=== PATIENT | female | born 1935 | race Caucasian/White ===

== ENCOUNTER 2016-06-20 12:02 | Emergency (ER) | payer OTHER ==
[~2016-06-20] VITALS: Ht 165.1 cm; Wt 67.0 kg
[~2016-06-20 12:02] MED LIST: ASPI-99 PO; BETH25 PO; CALC-187 PO; LOVA20TA PO; LUTE20CA PO; METO50TA PO; MULT-65 PO; NIAC500T34 PO; NORC10TA2 PO; OXYB5TAB PO; PROT40TA PO; RIVA10 PO; TRAM50TA PO; Z.0.CPM; Z.0.WALKERFRONT
[2016-06-20 12:13] VITALS: BP 113/74; PULSE 95; RESP 16; TEMP 100.7; O2SAT 97
[2016-06-20 12:29] LABS: BLOOD, URINE LARGE (NEG); GLUCOSE,URINE NEG (NEG); KETONE, URINE NEG (NEG)
--- NOTE | 2016-06-20 12:30 | PD ---
HPI Chief Complaint: Complaint Time Seen by Provider: 12:27 Travel History International Travel<30 days: No Contact w/Intl Traveler<30days: No Traveled to known affect area: No History of Present Illness HPI Patient presents with concerns of hematuria and fever. Denies any nausea vomiting or diarrhea. No new rashes. Denies any chest pain or shortness of breath. Denies frequency or pain on urination. Taking fluids well.. PFSH Past Medical History Arthritis: Yes Asthma: No Autoimmune Disease: No Blood Disorders: No Anxiety: No Depression: No Heart Rhythm Problems: No Cancer: No Cardiac Catheterization: No Cardiovascular Problems: No High Cholesterol: Yes Chemotherapy: No Chest Pain: No Congestive Heart Failure: No COPD: No Cerebrovascular Accident: No Diabetes: No Diminished Hearing: No Endocrine: No Gastrointestinal Disorders: Yes (GERD) GERD: Yes Glaucoma: No Genitourinary: Yes (FREQUENCY) Headaches: No Hepatitis: No Hiatal Hernia: Yes Hypertension: Yes Immune Disorder: No Kidney Stones: Yes (1999) Musculoskeletal: Yes (ARTHRITIS) Neurologic: No Psychiatric: No Reproductive: No Respiratory: No Immunizations Current: No Migraines: No Myocardial Infarction: No Radiation Therapy: No Seizures: No Sickle Cell Disease: No Sleep Apnea: No Thyroid Disease: No Ulcer: No Influenza Vaccination: Yes ?: Not Past Surgical History Abdominal Surgery: Yes (APPY) AICD: No Appendectomy: Yes Cardiac Surgery: No Cholecystectomy: Yes Coronary Artery Bypass Graft: No Ear Surgery: No Endocrine Surgery: No Eye Surgery: Yes (DEAN. CATARACT EXTRACT.) Genitourinary Surgery: No Gynecologic Surgery: Yes (HYSTERECTOMY/ CHOLECYSTECTOMY) Hysterectomy: Yes Joint Replacement: Yes (R KNEE) Oral Surgery: Yes (T&A) Pacemaker: No Thoracic Surgery: No Tonsillectomy: Yes Other Surgery: Yes Family History Family Myocardial Infarction: Yes Social History Alcohol Use: Yes (RARELY) Tobacco Use: No Substance Use: No Allergies-Medications (Allergen,Severity, Reaction): Coded Allergies: No Known Allergies (Verified , 06/20/16) Reported Meds & Prescriptions Reported Meds & Active Scripts Active Reported Tylenol (Acetaminophen) 325 Mg Cap 325 Mg PO ONCE PRN Biotin 1,000 Mcg Tab 1,000 Mg PO DAILY Vitamin B-12 (Cyanocobalamin) 1,000 Mcg Subl 500 Mcg SL DAILY Aspirin 81 Mg Tabdr 81 Mg PO DAILY Niacin 500 Mg Tab 500 Mg PO DAILY Calcium + D3 (Calcium Carbonate-Cholecalciferol) 600-200 Mg-Unit Tab 1 Tab PO BID Multi Complete (Multiple Vitamins W/ Minerals) 1 Cap Cap 1 Cap PO DAILY Bethanechol 25 Mg Tab 12.5 Mg PO BID Ditropan (Oxybutynin Chloride) 5 Mg Tab 5 Mg PO DAILY Metoprolol Tartrate 25 Mg Tab 25 Mg PO DAILY Lovastatin 20 Mg Tab 20 Mg PO DAILY Pantoprazole (Pantoprazole Sodium) 40 Mg Tab 40 Mg PO DAILY Review of Systems General / Constitutional: Positive: Fever Eyes: No: Visual changes HENT: No: Headaches Cardiovascular: No: Chest Pain or Discomfort Respiratory: No: Shortness of Breath Gastrointestinal: No: Abdominal Pain Genitourinary: Positive: Hematuria, No: Dysuria Musculoskeletal: No: Pain Skin: No Rash Neurologic: No: Weakness Psychiatric: No: Depression Endocrine: No: Polydipsia Hematologic/Lymphatic: No: Easy Bruising Physical Exam Narrative GENERAL: Well-nourished, well-developed patient. SKIN: Warm and dry. HEAD: Normocephalic. EYES: No scleral icterus. No injection or drainage. NECK: Supple, trachea midline. No JVD or lymphadenopathy. CARDIOVASCULAR: Regular rate and rhythm without murmurs, gallops, or rubs. RESPIRATORY: Breath sounds equal bilaterally. No accessory muscle use. GASTROINTESTINAL: Abdomen soft, non-tender, nondistended. MUSCULOSKELETAL: No cyanosis, or edema. BACK: without obvious deformity. No CVA tenderness. Exam initial lumbar sacral spine reveals no midline tenderness she does have some bilateral lower flank pain that is tender on palpation Data Data Last Documented VS Vital Signs Date Time Temp Pulse Resp B/P Pulse Ox O2 Delivery O2 Flow Rate FiO2 06/20/16 12:35 100.8 90 18 100/67 100 Room Air Orders Urinalysis - C+S If Indicated (06/20/16 12:18) Urine Culture (06/20/16 12:22) Labs Laboratory Tests Test 06/20/16 12:22 Urine Collection Type CLEAN CATCH Urine Color YELLOW Urine Turbidity CLOUDY Urine pH 6.0 Urine Specific [place] 1.011 Urine Protein 100 mg/dL Urine Glucose (UA) NEG mg/dL Urine Ketones NEG mg/dL Urine Occult Blood LARGE Urine Nitrite POS Urine Bilirubin NEG Urine Leukocyte Esterase LARGE Urine RBC 0-3 /hpf Urine WBC INNUM /hpf Urine WBC Clumps OCC Urine Bacteria MOD /hpf Microscopic Urinalysis Comment CULTURE INDICATED MDM Medical Decision Making Medical Screen Exam Complete: Yes Emergency Medical Condition: Yes Differential Diagnosis Hematuria, UTI, lumbar musculoskeletal pain, Fever Narrative Course Assessment and plan discussed with patient at bedside Diagnosis Primary Impression: UTI (urinary tract infection) Qualified Code: N39.0 - Urinary tract infection with hematuria, site unspecified Additional Instructions: Encourage fluids and cranberry juice, Tylenol for fever. Follow-up with PCP for test of cure Med/Other Pt SpecificInfo: Prescription(s) given Scripts Ciprofloxacin (Cipro)500 Mg Qey993 Mg PO BID #6 TAB Ref 0 Prov:Jef Llanes MD 06/20/16 Disposition: 01 DISCHARGE HOME Condition: Good Jef Llanes MD Jun 20, 2016 12:30
[2016-06-20] MEDS ORDERED: BETH25TA2 PO (12:33)
[2016-06-20] MEDS ORDERED: CALC600T10 PO (12:33)
[2016-06-20] MEDS ORDERED: LOVA20TA PO (12:33)
[2016-06-20] MEDS ORDERED: MULTCAP13 PO (12:33)
[2016-06-20] MEDS ORDERED: OXYB5TAB10 PO (12:33)
[2016-06-20] MEDS ORDERED: PANT40TA3 PO (12:33)
[2016-06-20] MEDS ORDERED: ASPI1TAB69 PO (12:33)
[2016-06-20] MEDS ORDERED: NIAC500T5 PO (12:33)
[2016-06-20] MEDS ORDERED: BIOT1000 PO (12:33)
[2016-06-20] MEDS ORDERED: METO25TA3 PO (12:33)
[2016-06-20] MEDS ORDERED: VITA100021 SL (12:33)
[2016-06-20 12:34] LABS: METHOD OF COLLECTION CLEAN CATCH; NITRITE,URINE POS (NEG); URINE COLOR YELLOW (YELLW/STRAW)
[2016-06-20 12:35] VITALS: BP 100/67; PULSE 90; RESP 18; TEMP 100.8; O2SAT 100
[2016-06-20 12:35] LABS: BACTERIA, URINE MOD /hpf; COMMENT (UR) CULTURE INDICATED; CULTURE IF INDICATED CULTURE INDICATED; RBC, URINE 0-3 /hpf (0-3); WBC, URINE INNUM /hpf (0-5)
[2016-06-20] MEDS ORDERED: ACET1CAP18 PO (12:38)
[2016-06-20] MEDS ORDERED: CIPR-9 PO (12:42)
[2016-06-20] MEDS ORDERED: cefTRIAXone 250 MG VIAL IM ONE (12:45)
[2016-06-20] MEDS ORDERED: LIDOCAINE HCL 1% 50 ML VIAL XX ONE (12:45)
== END 2016-06-20 13:25 | disposition home or self-care (01) ==
LOC: PHED 12:02
DX: N39.0 Urinary tract infection, site not specified (principal); B96.29 Other Escherichia coli [E. coli] as the cause of diseases classified elsewhere
CPT/HCPCS: 81001; 87077; 87086; 87186; 96372; 99284; J0696

== ENCOUNTER 2016-10-02 10:44 | Observation (INO) | payer OTHER ==
[2016-10-02] VITALS (8 sets, daily range): BP systolic 115–166; BP diastolic 62–88; PULSE 58–70; RESP 15–20; TEMP 98.5–98.9; O2SAT 96–98
[~2016-10-02] VITALS: Ht 165.1 cm; Wt 68.0 kg
[~2016-10-02 10:44] MED LIST changes: +ACET1CAP18 PO; -ASPI-99 PO; +ASPI1TAB69 PO; -BETH25 PO; +BETH25TA2 PO; +BIOT1000 PO; -CALC-187 PO; +CALC600T10 PO; +CIPR-9 PO; -LUTE20CA PO; +METO25TA3 PO; -METO50TA PO; -MULT-65 PO; +MULTCAP13 PO; -NIAC500T34 PO; +NIAC500T5 PO; -NORC10TA2 PO; -OXYB5TAB PO; +OXYB5TAB10 PO; +PANT40TA3 PO; -PROT40TA PO; -RIVA10 PO; -TRAM50TA PO; +VITA100021 SL; -Z.0.CPM; -Z.0.WALKERFRONT
--- NOTE | 2016-10-02 11:26 | PD ---
HPI Chief Complaint: Chest Pain Time Seen by Provider: 11:26 Travel History International Travel<30 days: No Contact w/Intl Traveler<30days: No Traveled to known affect area: No History of Present Illness HPI 80-year-old female with a history of hypertension, hyperlipidemia, GERD presents to the emergency department for evaluation of chest pain radiating to her jaw and face with shortness of breath. The patient states that she has a history of GERD and has frequent reflux in the morning. States that she typically wakes up with a burning sensation in her chest and once she sits up and takes Prilosec her symptoms resolved in about 15 minutes. States that this morning when she woke up with burning in her chest she was unable to alleviate the symptoms by taking Prilosec, sitting up or belching. States that the symptoms persisted for about an hour and she also had shortness of breath associated with the pain. She took a full 325 mg aspirin this morning. She denies any lightheadedness, dizziness, nausea, vomiting, diarrhea, abdominal pain, swelling of the extremities, fever, chills, cough or cold symptoms. States that she is concerned that because her symptoms were different today that this is and angina rather than reflux. Denies any prior history of PR or stents. States that she had a stress test 2 years ago that was unremarkable. No other complaints. PFSH Past Medical History Hx Anticoagulant Therapy: Yes (81MG ASA) Arthritis: Yes Asthma: No Autoimmune Disease: No Blood Disorders: No Anxiety: No Depression: No Heart Rhythm Problems: No Cancer: No Cardiac Catheterization: No Cardiovascular Problems: Yes (HTN) High Cholesterol: Yes Chemotherapy: No Chest Pain: No Congestive Heart Failure: No COPD: No Cerebrovascular Accident: No Diabetes: No Diminished Hearing: No Endocrine: No Gastrointestinal Disorders: Yes (GERD) GERD: Yes Glaucoma: No Genitourinary: Yes (FREQUENCY) Headaches: No Hepatitis: No Hiatal Hernia: Yes Hypertension: Yes Immune Disorder: No Kidney Stones: Yes (2000) Musculoskeletal: Yes (ARTHRITIS) Neurologic: No Psychiatric: No Reproductive: No Respiratory: No Immunizations Current: No Migraines: No Myocardial Infarction: No Radiation Therapy: No Seizures: No Sickle Cell Disease: No Sleep Apnea: No Thyroid Disease: No Ulcer: No ?: Not Past Surgical History Abdominal Surgery: Yes (APPY) AICD: No Appendectomy: Yes Cardiac Surgery: No Cholecystectomy: Yes Coronary Artery Bypass Graft: No Ear Surgery: No Endocrine Surgery: No Eye Surgery: Yes (DEAN. CATARACT EXTRACT.) Genitourinary Surgery: No Gynecologic Surgery: Yes (HYSTERECTOMY/ CHOLECYSTECTOMY) Hysterectomy: Yes Joint Replacement: Yes (R KNEE) Oral Surgery: Yes (T&A) Pacemaker: No Thoracic Surgery: No Tonsillectomy: Yes Other Surgery: Yes Family History Family Myocardial Infarction: Yes Social History Alcohol Use: Yes (RARELY) Tobacco Use: No Substance Use: No Allergies-Medications (Allergen,Severity, Reaction): Coded Allergies: No Known Allergies (Verified , 10/02/16) Reported Meds & Prescriptions Reported Meds & Active Scripts Active Cipro (Ciprofloxacin HCl) 500 Mg Tab 500 Mg PO BID Reported Tylenol (Acetaminophen) 325 Mg Cap 325 Mg PO ONCE PRN Biotin 1,000 Mcg Tab 1,000 Mg PO DAILY Vitamin B-12 (Cyanocobalamin) 1,000 Mcg Subl 500 Mcg SL DAILY Aspirin 81 Mg Tabdr 81 Mg PO DAILY Niacin 500 Mg Tab 500 Mg PO DAILY Calcium + D3 (Calcium Carbonate-Cholecalciferol) 600-200 Mg-Unit Tab 1 Tab PO BID Multi Complete (Multiple Vitamins W/ Minerals) 1 Cap Cap 1 Cap PO DAILY Bethanechol 25 Mg Tab 12.5 Mg PO BID Ditropan (Oxybutynin Chloride) 5 Mg Tab 5 Mg PO DAILY Metoprolol Tartrate 25 Mg Tab 25 Mg PO DAILY Lovastatin 20 Mg Tab 20 Mg PO DAILY Pantoprazole (Pantoprazole Sodium) 40 Mg Tab 40 Mg PO DAILY Review of Systems Except as stated in HPI: all other systems reviewed are Neg Physical Exam Narrative GENERAL: Well-nourished and well-developed pleasant patient in no acute distress who is nontoxic appearing. SKIN: Warm and dry. HEAD: Normocephalic and atraumatic. EYES: No injection, drainage, or hyphema noted. PERRLA. EOMI. ENT: No nasal drainage noted. Oropharynx is clear. NECK: Supple and the trachea is midline. CARDIOVASCULAR: Regular rate and rhythm. RESPIRATORY: Breath sounds are equal bilaterally with no accessory muscle use, wheezing, rhonchi, or crackles. GASTROINTESTINAL: Abdomen is soft, non-tender, and nondistended. MUSCULOSKELETAL: No obvious deformities, swelling, cyanosis, or ecchymosis is present throughout the upper and lower extremities. Patient has full range of motion without any signs of neurovascular compromise. NEUROLOGICAL: Awake, alert, and oriented. Normal speech and gait. Cranial nerves are grossly intact. Data Data Last Documented VS Vital Signs Date Time Temp Pulse Resp B/P Pulse Ox O2 Delivery O2 Flow Rate FiO2 10/02/16 12:46 62 20 166/78 98 10/02/16 11:15 Room Air 10/02/16 10:46 98.7 Orders Ckmb (Isoenzyme) Profile (10/02/16 11:25) Complete Blood Count With Diff (10/02/16 11:25) Comprehensive Metabolic Panel (10/02/16 11:25) Magnesium (Mg) (10/02/16 11:25) Prothrombin Time / Inr (Pt) (10/02/16 11:25) Act Partial Throm Time (Ptt) (10/02/16 11:25) Troponin I (10/02/16 11:25) Lipase (10/02/16 11:25) Chest, Single Ap (10/02/16 11:25) Ecg Monitoring (10/02/16 11:25) Bilateral Bp Monitoring (10/02/16 11:25) Iv Access Insert/Monitor (10/02/16 11:25) Oximetry (10/02/16 11:25) Sodium Chloride 0.9% Flush (Ns Flush) (10/02/16 11:30) Electrocardiogram (10/02/16 ) Admit Order (Ed Use Only) (10/02/16 12:46) Labs Laboratory Tests Test 10/02/16 11:30 White Blood Count 6.8 TH/MM3 Red Blood Count 4.39 MIL/MM3 Hemoglobin 14.2 GM/DL Hematocrit 40.7 % Mean Corpuscular Volume 92.8 FL Mean Corpuscular Hemoglobin 32.3 PG Mean Corpuscular Hemoglobin 34.8 % Concent Red Cell Distribution Width 12.6 % Platelet Count 243 TH/MM3 Mean Platelet Volume 7.1 FL Neutrophils (%) (Auto) 67.2 % Lymphocytes (%) (Auto) 23.6 % Monocytes (%) (Auto) 7.2 % Eosinophils (%) (Auto) 1.3 % Basophils (%) (Auto) 0.7 % Neutrophils # (Auto) 4.6 TH/MM3 Lymphocytes # (Auto) 1.6 TH/MM3 Monocytes # (Auto) 0.5 TH/MM3 Eosinophils # (Auto) 0.1 TH/MM3 Basophils # (Auto) 0.0 TH/MM3 CBC Comment DIFF FINAL Differential Comment Prothrombin Time 10.1 SEC Prothromb Time International 0.9 RATIO Ratio Activated Partial 29.3 SEC Thromboplast Time Sodium Level 132 MEQ/L Potassium Level 3.9 MEQ/L Chloride Level 99 MEQ/L Carbon Dioxide Level 24.9 MEQ/L Anion Gap 8 MEQ/L Blood Urea Nitrogen 14 MG/DL Creatinine 0.93 MG/DL Estimat Glomerular Filtration 58 ML/MIN Rate Random Glucose 86 MG/DL Calcium Level 9.5 MG/DL Magnesium Level 2.0 MG/DL Total Bilirubin 0.6 MG/DL Aspartate Amino Transf 16 U/L (AST/SGOT) Alanine Aminotransferase 17 U/L (ALT/SGPT) Alkaline Phosphatase 64 U/L Total Creatine Kinase 89 U/L Troponin I LESS THAN 0.02 NG/ML Total Protein 7.5 GM/DL Albumin 4.0 GM/DL Lipase 117 U/L [facility] Medical Decision Making Medical Screen Exam Complete: Yes Emergency Medical Condition: Yes Differential Diagnosis Angina versus ACS versus pleurisy versus reflux Narrative Course 80-year-old female presents to the emergency department for evaluation of chest pain with shortness of breath earlier this morning. Patient is afebrile, vital signs are stable. Physical examination is unremarkable. She reports she has a history of reflux but that her symptoms were different this morning than her typical reflux which concerned her for angina. She already took 325 mg of aspirin at home this morning. She is not currently experiencing any chest pain. EKG shows sinus rhythm with no acute ST elevations or depressions. IV access is obtained, labs were drawn and sent. Patient is placed on cardiac telemetry and pulse oximetry monitoring. Chest x-ray is negative for any acute abnormalities. CBC is unremarkable. CMP is unremarkable. Troponin is less than 0.02. Coags are unremarkable. Chest x-ray shows mild cardiomegaly with linear scarring in the left lung base. No acute abnormalities. Patient has remained stable and without complaint while here in the emergency department. She'll be admitted to chest pain center for repeat cardiac enzymes , EKGs and possible stress testing. Patient verbalizes understanding and agreement with treatment plan. Diagnosis Primary Impression: Chest pain Qualified Code: R07.9 - Chest pain, unspecified type Admitting Information Admitting Physician Requests: Lilia Cowart Oct 02, 2016 11:26
[2016-10-02] MEDS ORDERED: SODIUM CHLORIDE 0.9% FLUSH 10 ML FLUSH IVF PRN (11:30)
[2016-10-02 11:46] LABS: AUTOMATED NEUTROPHIL # 4.6 TH/MM3 (1.8-7.7); BASOPHIL % 0.7 % (0.0-2.0); EOSINOPHIL # 0.1 TH/MM3 (0-0.4); EOSINOPHIL % 1.3 % (0.0-4.0); HEMATOCRIT 40.7 % (35.0-46.0); HEMO FLAGS DIFF FINAL; LYMPH % 23.6 % (9.0-44.0); LYMPHOCYTE # 1.6 TH/MM3 (1.0-4.8); MEAN CELL VOLUME 92.8 FL (80.0-100.0); MEAN CORPUSCULAR HEMOGLOBIN 32.3 PG (27.0-34.0); MEAN CORPUSCULAR HGB CONC 34.8 % (32.0-36.0); MONO % 7.2 % (0.0-8.0); NEUT % 67.2 % (16.0-70.0); PLATELET COUNT 243 TH/MM3 (150-450); RED BLOOD COUNT 4.39 MIL/MM3 (4.00-5.30); RED CELL DISTRIBUTION WIDTH 12.6 % (11.6-17.2); WHITE BLOOD COUNT 6.8 TH/MM3 (4.0-11.0)
[2016-10-02 11:57] LABS: APTT (PATIENT) 29.3 SEC (24.3-30.1); INTERNATIONAL NORMALIZED RATIO 0.9 RATIO; PROTHROMBIN TIME - PATIENT 10.1 SEC (9.8-11.6)
--- NOTE | 2016-10-02 12:07 | RADRPT ---
EXAM DATE/TIME: 10/02/2016 11:51 [facility] COMPARISON: CHEST SINGLE AP, December 10, 2014, 11:03. INDICATIONS : Chest pain MEDICAL HISTORY : Cardiovascular disease. GERD, HTN, SURGICAL HISTORY : Cholecystectomy. knee replacement ENCOUNTER: Initial ACUITY: 1 day PAIN SCORE: 7/10 LOCATION: Bilateral chest FINDINGS: A single view of the chest demonstrates the lungs to be symmetrically aerated without evidence of mas s, infiltrate or effusion. The cardiomediastinal contours are mildly prominent. Osseous structures a re intact. CONCLUSION: 1. Mild cardiomegaly. Linear scarring left lung base. No consolidation or effusion. No pneumothorax. Alex Hernandez MD on October 02, 2016 at 12:04 Board Certified Radiologist. This report was verified electronically.
[2016-10-02 12:29] LABS: ALKALINE PHOSPHATASE 64 U/L (45-117); ALT (GPT) 17 U/L (10-53); ANION GAP 8 MEQ/L (5-15); AST (GOT) 16 U/L (15-37); BICARBONATE 24.9 MEQ/L (21.0-32.0); BLOOD UREA NITROGEN 14 MG/DL (7-18); CHLORIDE 99 MEQ/L (98-107); GLOMERULAR FILTRATION RATE 58 ML/MIN (>89); POTASSIUM 3.9 MEQ/L (3.5-5.1); SODIUM (NA) 132 MEQ/L (136-145); TOTAL BILIRUBIN ADULT 0.6 MG/DL (0.2-1.0)
[2016-10-02 12:30] LABS: CREATINE KINASE 89 U/L (26-192)
[2016-10-02] MEDS ORDERED: ACETAMINOPHEN/HYDROcodone 325 MG/7.5 MG TAB PO PRN (13:15)
[2016-10-02] MEDS ORDERED: ALPRAZolam 0.25 MG TAB PO PRN (13:15)
[2016-10-02] MEDS ORDERED: SODIUM CHLORIDE 0.9% FLUSH 5 ML FLUSH IVF PRN (13:15)
[2016-10-02] MEDS ORDERED: ACETAMINOPHEN 500 MG CPLT PO PRN (13:15)
[2016-10-02] MEDS ORDERED: ONDANSETRON HCL 4 MG/2 ML VIAL IV PRN (13:15)
[2016-10-02] MEDS ORDERED: METO50TA11 PO (13:17)
--- NOTE | 2016-10-02 13:21 | HHI.HP ---
[facility] Primary Care Physician Jeaneth Lieberman MD Chief Complaint Chest pain History of Present Illness This is a 80-year-old female that presents to ED via private vehicle with a friend with a complaint of a chest discomfort that been intermittently present for at least a week. She has noticed it first thing in the morning when she wakes up. Initially it would resolve after belching and taking Prilosec. However today the discomfort persisted for an hour. She was also short of breath with his discomfort this morning. The discomfort goes across her chest down both of her arms and up into both sides of her neck. She cannot recall anything that brings on the discomfort. Denies history of CAD. Had some of a similar episode a couple years ago and had a normal stress test. Denies recent illness. Denies fevers or chills. Review of Systems General: Patient denies fevers, chills recent, and recent travel HEENT: Patient denies headache, sore throat, difficulty swallowing. Cardiovascular: Has the chest discomfort as mentioned above. Denies sensation of heart beating rapidly or irregularly. No syncope. Denies diaphoresis. Respiratory: She was short of breath this morning. Denies inspirational chest discomfort. Denies coughing wheezing or hemoptysis. GI: Patient denies nausea, vomiting, diarrhea, abdominal pain, bloody stools. Musculoskeletal: Patient denies joint pain or edema. Denies calf pain or edema. Neurovascular: Patient denies numbness, tingling, weakness in extremities. Denies headache. Endocrine: Denies polyuria and polydipsia. Hematologic: Denies easy bruising. Skin: Denies rash or itching. Past Family Social History Allergies: Coded Allergies: No Known Allergies (Verified , 10/02/16) Past Medical History Hypertension, hyperlipidemia, GERD, hiatal hernia. Denies diabetes and CAD. Past Surgical History Hysterectomy. Reported Medications Reported Meds & Active Scripts Active Reported Tylenol (Acetaminophen) 325 Mg Cap 325 Mg PO ONCE PRN Biotin 1,000 Mcg Tab 1,000 Mg PO DAILY Vitamin B-12 (Cyanocobalamin) 1,000 Mcg Subl 500 Mcg SL DAILY Aspirin 81 Mg Tabdr 81 Mg PO DAILY Niacin 500 Mg Tab 500 Mg PO DAILY Calcium + D3 (Calcium Carbonate-Cholecalciferol) 600-200 Mg-Unit Tab 1 Tab PO BID Multi Complete (Multiple Vitamins W/ Minerals) 1 Cap Cap 1 Cap PO DAILY Bethanechol 25 Mg Tab 12.5 Mg PO BID Ditropan (Oxybutynin Chloride) 5 Mg Tab 5 Mg PO DAILY Lovastatin 20 Mg Tab 20 Mg PO DAILY Pantoprazole (Pantoprazole Sodium) 40 Mg Tab 40 Mg PO DAILY Active Ordered Medications Current Medications Medications (Trade) Dose Ordered Sig/Charley Route Start Time Stop Time Status Last Admin (NS Flush) 2 ml UNSCH PRN IVF 10/02/16 11:30 (Urecholine) 12.5 mg BID PO 10/02/16 21:00 UNV (Pravachol) 20 mg DAILY PO 10/03/16 09:00 UNV (Ditropan) 5 mg DAILY PO 10/03/16 09:00 UNV (Protonix) 40 mg DAILY PO 10/03/16 09:00 UNV Non-Formulary Medication 1 cap DAILY PO 10/03/16 09:00 UNV Non-Formulary Medication 500 mg DAILY PO 10/03/16 09:00 UNV (NS Flush) 2 ml UNSCH PRN IVF 10/02/16 13:15 UNV (NS Flush) 2 ml BID IVF 10/02/16 21:00 UNV (Tylenol) 500 mg Q4H PRN PO 10/02/16 13:15 UNV ([place] 7.5-325 Mg) 1 tab Q4H PRN PO 10/02/16 13:15 UNV (Zofran Inj) 4 mg Q6H PRN IV 10/02/16 13:15 UNV (Aspirin) 325 mg DAILY PO 10/03/16 09:00 UNV (Xanax) 0.25 mg Q8H PRN PO 10/02/16 13:15 UNV Family History Denies family history of CAD. Social History Patient is a lifetime nonsmoker. Physical Exam Vital Signs Vital Signs Date Time Temp Pulse Resp B/P Pulse Ox O2 Delivery O2 Flow Rate FiO2 10/02/16 12:46 62 20 166/78 98 10/02/16 11:40 98 10/02/16 11:15 66 15 164/88 98 Room Air 10/02/16 10:46 98.7 70 20 140/82 97 Room Air Physical Exam GENERAL: This is a well-nourished, well-developed patient, in no apparent distress. Patient speaks in clear complete sentences. Patient is pleasant. HEENT: Head is atraumatic and normocephalic. Neck is supple without lymphadenopathy and trachea is midline. No JVD or carotid bruits. CARDIOVASCULAR: Regular rate and rhythm without murmurs, gallops, or rubs. RESPIRATORY: Clear to auscultation. Breath sounds equal bilaterally. No wheezes , rales, or rhonchi. Chest wall is nontender. No use of accessory muscles. GASTROINTESTINAL: Abdomen is nontender, nondistended. Abdomen soft. No obvious pulsatile mass or bruit. No CVA tenderness. Strong femoral pulses bilaterally. Normal bowel sounds in all quadrants. MUSCULOSKELETAL: Patient is moving upper and lower extremities freely. No calf tenderness or edema, no Homans sign. Strong pulses in upper and lower extremities. NEUROLOGICAL: Patient is alert and oriented. Cranial nerves 2-12 are grossly intact. No focal deficits and speech is clear. SKIN: No rash and turgor is normal. Laboratory Laboratory Tests Test 10/02/16 11:30 White Blood Count 6.8 Red Blood Count 4.39 Hemoglobin 14.2 Hematocrit 40.7 Mean Corpuscular Volume 92.8 Mean Corpuscular Hemoglobin 32.3 Mean Corpuscular Hemoglobin 34.8 Concent Red Cell Distribution Width 12.6 Platelet Count 243 Mean Platelet Volume 7.1 Neutrophils (%) (Auto) 67.2 Lymphocytes (%) (Auto) 23.6 Monocytes (%) (Auto) 7.2 Eosinophils (%) (Auto) 1.3 Basophils (%) (Auto) 0.7 Neutrophils # (Auto) 4.6 Lymphocytes # (Auto) 1.6 Monocytes # (Auto) 0.5 Eosinophils # (Auto) 0.1 Basophils # (Auto) 0.0 CBC Comment DIFF FINAL Differential Comment Prothrombin Time 10.1 Prothromb Time International 0.9 Ratio Activated Partial 29.3 Thromboplast Time Sodium Level 132 Potassium Level 3.9 Chloride Level 99 Carbon Dioxide Level 24.9 Anion Gap 8 Blood Urea Nitrogen 14 Creatinine 0.93 Estimat Glomerular Filtration 58 Rate Random Glucose 86 Calcium Level 9.5 Magnesium Level 2.0 Total Bilirubin 0.6 Aspartate Amino Transf 16 (AST/SGOT) Alanine Aminotransferase 17 (ALT/SGPT) Alkaline Phosphatase 64 Total Creatine Kinase 89 Troponin I LESS THAN 0.02 Total Protein 7.5 Albumin 4.0 Lipase 117 Result Diagram: 10/02/16 1130 10/02/16 1130 Imaging Last 48 hours Impressions Chest X-Ray 10/02/16 1125 Signed Impressions: Service Date/Time: Sunday, October 02, 2016 11:51 - CONCLUSION: 1. Mild cardiomegaly. Linear scarring left lung base. No consolidation or effusion. No pneumothorax. Alex Hernandez MD Course Initial EKG has sinus rhythm rate of [address] segment depressions or elevations. Assessment and Plan Assessment and Plan * Chest pain: Patient will continue to have serial cardiac enzymes and EKGs for ruling out purposes. She will be evaluated by Dr. Craft cardiology and the chest pain center. If she rules out she'll likely will proceed with a Lexiscan. She would be discharged home if her Lexiscan is nonischemic. She should then follow-up with her primary care physician. * Hypertension: Continue current medication and have Catapres when necessary. * Hyperlipidemia: Continue current medication. * GERD: Continue PPI. Patient is stable at this time. She is agreeable to this plan. Jian Sherwood Oct 02, 2016 13:21
[2016-10-02] MEDS ORDERED: RESP: ALBUTEROL 2.5 MG/IPRATROPIUM 0.5 MG NEB (PRN) INH (13:30)
[2016-10-02] MEDS ORDERED: ALUMINUM/MAGNESIUM/SIMETH 30 ML CUP PO PRN (13:30)
[2016-10-02] MEDS ORDERED: PILL SPLITTER OTHER PRN (13:30)
[2016-10-02] MEDS ORDERED: cloNIDine HCL 0.1 MG TAB PO PRN (13:30)
[2016-10-02 15:35] LABS: CREATINE KINASE 74 U/L (26-192)
--- NOTE | 2016-10-02 16:26 | EKG ---
Date Performed: 10/02/2016 Time Performed: 11:05:53 PTAGE: 80 years EKG: Sinus rhythm MARKED LEFT AXIS DEVIATION ABNORMAL ECG PREVIOUS TRACING : 10/02/2016 09.55 Compared to prior tracing no significant change DOCTOR: Harriet Guzman Interpretating Date/Time 10/02/2016 16:25:09
[2016-10-02 18:12] LABS: CREATINE KINASE 71 U/L (26-192)
[2016-10-02] MEDS: BETHANECHOL CHL 25 MG TAB PO SCH (21:00)
[2016-10-02] MEDS: SODIUM CHLORIDE 0.9% FLUSH 5 ML FLUSH IVF SCH (21:00)
[2016-10-03 04:23] VITALS: BP 121/66; PULSE 60; RESP 18; TEMP 98.8; O2SAT 99
[2016-10-03 07:23] VITALS: BP 120/65; PULSE 65; RESP 16; TEMP 98.5; O2SAT 95
[2016-10-03] MEDS: BETHANECHOL CHL 25 MG TAB PO SCH (08:43)
[2016-10-03] MEDS: SODIUM CHLORIDE 0.9% FLUSH 5 ML FLUSH IVF SCH (08:43)
[2016-10-03] MEDS ORDERED: NIACIN 500 MG EXTENDED RELEASE TAB PO SCH (09:00)
[2016-10-03] MEDS ORDERED: PANTOPRAZOLE SOD 40 MG DELAYED RELEASE TAB PO SCH (09:00)
[2016-10-03] MEDS ORDERED: ASPIRIN 325 MG TAB PO SCH (09:00)
[2016-10-03] MEDS ORDERED: MULTIVITAMINS/MINERALS THERAPEUTIC TAB PO SCH (09:00)
[2016-10-03] MEDS ORDERED: OXYBUTYNIN CHLORIDE 5 MG TAB PO SCH (09:00)
[2016-10-03] MEDS ORDERED: PRAVASTATIN SOD 20 MG TAB PO SCH (09:00)
[2016-10-03 11:20] VITALS: PULSE 73
[2016-10-03] MEDS ORDERED: REGADENOSON INJ 0.4 MG/5 ML SYR ONE (11:37)
--- NOTE | 2016-10-03 12:30 | EKG ---
Date Performed: 10/02/2016 Time Performed: 14:27:48 PTAGE: 80 years EKG: SINUS BRADYCARDIA WITH FIRST DEGREE AV BLOCK BORDERLINE LEFT AXIS DEVIATION POOR PRECORDIAL R-WAVE PROGRESSION ABNORMAL ECG PREVIOUS TRACING : 10/02/2016 11.05 DOCTOR: Ramses Reese Interpretating Date/Time 10/03/2016 12:28:41
--- NOTE | 2016-10-03 12:32 | EKG ---
Date Performed: 10/02/2016 Time Performed: 17:25:40 PTAGE: 80 years EKG: SINUS BRADYCARDIA BORDERLINE LEFT AXIS DEVIATION 1ST DEGREE AV BLOCK POOR PRECORDIAL R-WAVE PROGRESSION ABNORMAL ECG PREVIOUS TRACING : 10/02/2016 14.27 DOCTOR: Ramses Reese Interpretating Date/Time 10/03/2016 12:30:58
--- NOTE | 2016-10-03 12:53 | RADRPT ---
EXAM DATE/TIME: 10/03/2016 11:07 [facility] COMPARISON: No previous studies available for comparison. INDICATIONS : Chest pain for 1 week. Angina. DOSE: 25.8 mCi Tc99m Myoview at stress. 8.1 mCi Tc99m Myoview at rest. 0.4 mg Lexiscan STRESS SYMPTOMS: Nausea. EJECTION FRACTION: > 70% MEDICAL HISTORY : Hypertension. SURGICAL HISTORY : Cholecystectomy. Appendectomy. Hysterectomy. ENCOUNTER: Initial ACUITY: 1 week PAIN SCALE: 4/10 LOCATION: Bilateral chest TECHNIQUE: The patient underwent pharmacologic stress with infusion of prescribed dose. Continuous ECG tracing was monitored during stress. Gated SPECT imaging was performed after stress and conventional SPECT i maging was performed at rest. The examination was performed on a SPECT/CT scanner, both attenuation and non-corrected datasets were reviewed. FINDINGS: DISTRIBUTION: The maximum perfused segment at stress is in the anterior wall. PERFUSION STUDY: The pattern of perfusion at stress is within normal limits. GATED STUDY: There is intact wall motion and thickening without hypokinetic or dyskinetic segments. CONCLUSION: No areas of ischemia are seen. No fixed defects are seen. The wall motion and ejection fraction are n ormal. RISK CATEGORY: Low (<1% Annual Mortality Rate) Jeremy Correa MD on October 03, 2016 at 12:49 Board Certified Radiologist. This report was verified electronically.
--- NOTE | 2016-10-03 13:02 | TR ---
Date Performed: 10/03/2016 Time Performed: 11:54:01 DOCTOR: Ramses Reese DRUG LIST: CLINICAL HISTORY: CHEST PAIN CHEST PAIN REASON FOR TEST: REASON FOR ENDING: OBSERVATION: CONCLUSION: Lexiscan stress test was performed under standard four minute protocol. Radionuclide was injected one minute prior to ending the test. The patient was asymptomatic. No electrocardiograp hic abnormalities were present to suggest ischemia. Recovery was quick and uneventful. Nuclear imagin g and interpretation are pending. COMMENTS:
--- NOTE | 2016-10-03 13:14 | HHI.DCPOC ---
Discharge Care Plan Diagnosis: (1) Chest pain (2) Hypertension (3) Hyperlipidemia (4) GERD (gastroesophageal reflux disease) Goals to Promote Your Health * To prevent worsening of your condition and complications * To maintain your health at the optimal level Directions to Meet Your Goals Take your medications as prescribed Follow your dietary instruction Follow activity as directed Keep your appointments as scheduled Take your immunizations and boosters as scheduled If your symptoms worsen call your PCP, if no PCP go to Urgent Care Center or Emergency Room Smoking is Dangerous to Your Health. Avoid second hand smoke Call the 24-hour hour crisis hotline for domestic abuse at Jian Sherwood Oct 03, 2016 13:14
== END 2016-10-03 14:21 | disposition home or self-care (01) ==
LOC: NEPE 10:44 → NEDA 12:48 → NEPHCDU 14:35
PROVIDERS: ADMIT Internal Medicine Interventional Cardiology; ATTEND Internal Medicine Interventional Cardiology
DX: R07.9 Chest pain, unspecified (principal); I10 Essential (primary) hypertension; E78.00 Pure hypercholesterolemia, unspecified; K21.9 Gastro-esophageal reflux disease without esophagitis; E78.5 Hyperlipidemia, unspecified; R06.02 Shortness of breath
CPT/HCPCS: 71010; 78452; 80053; 82550; 83690; 83735; 84484; 85025; 85610; 85730; 93005; 93017; 99285; A9502; G0378; J2785

== ENCOUNTER 2017-02-24 11:59 | Emergency (ER) | payer OTHER ==
[~2017-02-24] VITALS: Ht 165.1 cm; Wt 72.4 kg
[~2017-02-24 11:59] MED LIST changes: -CIPR-9 PO; +METO1TAB9 PO; -METO25TA3 PO; -OXYB5TAB10 PO; +OXYB5TAB8 PO
[2017-02-24 12:03] VITALS: BP 156/98; PULSE 91; RESP 18; TEMP 98; O2SAT 96
[2017-02-24] MEDS ORDERED: ASPI-516 CHEW (12:26)
[2017-02-24] MEDS ORDERED: LORA0.5T PO (12:26)
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
[2017-02-24] MEDS ORDERED: MEDI220T PO (13:48)
[2017-02-24] MEDS ORDERED: CYCL5TAB PO (13:48)
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
== END 2017-02-24 14:00 | disposition home or self-care (01) ==
LOC: PHEFT 11:59
DX: S60.222A Contusion of left hand, initial encounter (principal); V89.2XXA Person injured in unspecified motor-vehicle accident, traffic, initial encounter; Y92.488 Other paved roadways as the place of occurrence of the external cause
CPT/HCPCS: 73130; 99284

== ENCOUNTER 2017-03-01 16:57 | Emergency (ER) | payer OTHER ==
[~2017-03-01] VITALS: Ht 165.1 cm; Wt 70.4 kg
[~2017-03-01 16:57] MED LIST changes: -ACET1CAP18 PO; +ASPI-516 CHEW; -ASPI1TAB69 PO; +CYCL5TAB PO; +LORA0.5T PO; +MEDI220T PO; -MULTCAP13 PO; -NIAC500T5 PO
[2017-03-01 17:05] VITALS: BP 128/81; PULSE 92; RESP 16; TEMP 100; O2SAT 96
[2017-03-01 17:35] LABS: GLUCOSE,URINE NEG (NEG); KETONE, URINE NEG (NEG); NITRITE,URINE NEG (NEG)
[2017-03-01 17:36] LABS: BLOOD, URINE TRACE (NEG)
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
[2017-03-01 17:45] LABS: URINE COLOR YELLOW (YELLW/STRAW)
[2017-03-01 17:46] LABS: COMMENT (UR) CULT NOT INDICATED; CULTURE IF INDICATED CULT NOT INDICATED; RBC, URINE 0-3 /hpf (0-3); SQUAMOUS EPITHELIAL CELL URINE 0-5 /hpf (0-5); WBC, URINE 0-2 /hpf (0-5)
--- NOTE | 2017-03-01 19:00 | RADRPT ---
EXAM DATE/TIME: 03/01/2017 18:07 [facility] COMPARISON: CHEST SINGLE AP, October 02, 2016, 11:51. INDICATIONS : Fever, cough. MEDICAL HISTORY : Cardiovascular disease. Gastroesophageal reflux disease. Hypertension. SURGICAL HISTORY : None. ENCOUNTER: Initial ACUITY: 1 day PAIN SCORE: 0/10 LOCATION: Bilateral chest FINDINGS: PA and lateral views of the chest demonstrate the lungs to be symmetrically aerated without evidence of mass, infiltrate or effusion. The cardiomediastinal contours are unremarkable. Osseous structure s are intact. CONCLUSION: No acute cardiopulmonary disease. Erasmo Resendiz MD on March 01, 2017 at 18:58 Board Certified Radiologist. This report was verified electronically.
== END 2017-03-01 18:29 | disposition home or self-care (01) ==
LOC: PHED 16:57
DX: R50.9 Fever, unspecified (principal); M19.90 Unspecified osteoarthritis, unspecified site; E78.00 Pure hypercholesterolemia, unspecified; I10 Essential (primary) hypertension; Z86.73 Personal history of transient ischemic attack (TIA), and cerebral infarction without residual deficits
CPT/HCPCS: 71020; 81001; 99284

== ENCOUNTER 2017-05-07 16:08 | Emergency (ER) | payer OTHER ==
[~2017-05-07 16:08] MED LIST changes: -CYCL5TAB PO; -MEDI220T PO
[2017-05-07 16:09] VITALS: BP 170/77; PULSE 71; RESP 14; TEMP 98.8; O2SAT 97
[2017-05-07] MEDS ORDERED: ACETAMINOPHEN 500 MG CPLT PO ONE (16:45)
[2017-05-07] MEDS ORDERED: TETANUS/DIPHTHERIA TOXOID ADULT 0.5 ML VIAL IM ONE (16:45)
--- NOTE | 2017-05-07 16:49 | PD ---
HPI Chief Complaint: Fall Time Seen by Provider: 16:25 Travel History International Travel<30 days: No Contact w/Intl Traveler<30days: No Traveled to known affect area: No History of Present Illness HPI 81yo F presents to the ED with c/o headache after fall today. Pt was at the movie theater and trip on the tile. Said she face planted and hit her head and jaw. Pt also has small avulsion in left 4th digit, as well as right knee swelling. Denies any fever, chest pain, sob, n/v, abdominal pain, focal weakness or numbness. Tetanus not up to date. PFSH Past Medical History Hx Anticoagulant Therapy: Yes (BABY ASA DAILY) Arthritis: Yes Asthma: No Autoimmune Disease: No Blood Disorders: No Anxiety: No Depression: No Heart Rhythm Problems: No Cancer: No Cardiac Catheterization: No Cardiovascular Problems: Yes (HTN, CHOL) High Cholesterol: Yes Chemotherapy: No Chest Pain: No Congestive Heart Failure: No COPD: No Cerebrovascular Accident: Yes (TIA) Diabetes: No Diminished Hearing: No Endocrine: No Gastrointestinal Disorders: Yes (GERD) GERD: Yes Glaucoma: No Genitourinary: Yes (FREQUENCY) Headaches: No Hepatitis: No Hiatal Hernia: Yes Heparin Induced Thrombocytopen: No Hypertension: Yes Immune Disorder: No Implanted Vascular Access Dvce: No Kidney Stones: Yes (1999) Musculoskeletal: Yes (ARTHRITIS) Neurologic: No Psychiatric: No Reproductive: No Respiratory: No Immunizations Current: No Migraines: No Myocardial Infarction: No Radiation Therapy: No Seizures: No Sickle Cell Disease: No Sleep Apnea: No Thyroid Disease: No Ulcer: No Past Surgical History Abdominal Surgery: Yes (APPY) AICD: No Appendectomy: Yes Cardiac Surgery: No Cholecystectomy: Yes Coronary Artery Bypass Graft: No Ear Surgery: No Endocrine Surgery: No Eye Surgery: Yes (DEAN. CATARACT EXTRACT.) Genitourinary Surgery: No Gynecologic Surgery: Yes (HYSTERECTOMY/ CHOLECYSTECTOMY) Hysterectomy: Yes Insulin Pump: No Joint Replacement: Yes (R KNEE) Neurologic Surgery: No Oral Surgery: Yes (T&A) Pacemaker: No Thoracic Surgery: No Tonsillectomy: Yes Other Surgery: Yes Social History Alcohol Use: Yes (RARELY) Tobacco Use: No Substance Use: No Allergies-Medications (Allergen,Severity, Reaction): Coded Allergies: No Known Allergies (Verified Adverse Reaction, Unknown, 03/01/17) Reported Meds & Prescriptions Reported Meds & Active Scripts Active Reported Aspirin 81 Mg Chew 81 Mg CHEW DAILY Lorazepam 0.5 Mg Tab 0.5 Mg PO HS PRN Metoprolol Succinate ER 24 HR (Metoprolol Succinate) 50 Mg Tab 25 Mg PO DAILY Biotin 1,000 Mcg Tab 5,000 Mg PO DAILY Vitamin B-12 (Cyanocobalamin) 1,000 Mcg Subl 500 Mcg SL DAILY Calcium + D3 (Calcium Carbonate-Cholecalciferol) 600-200 Mg-Unit Tab 1 Tab PO BID Bethanechol 25 Mg Tab 25 Mg PO QID Ditropan (Oxybutynin Chloride) 5 Mg Tab 5 Mg PO DAILY Lovastatin 20 Mg Tab 20 Mg PO DAILY Pantoprazole (Pantoprazole Sodium) 40 Mg Tab 40 Mg PO DAILY Review of Systems Except as stated in HPI: all other systems reviewed are Neg Physical Exam Narrative GENERAL: 81yo F not in distress. SKIN: Focused skin assessment warm/dry. HEAD: Left parietal hematoma. EYES: Pupils equal and round. No scleral icterus. No injection or drainage. ENT: No nasal bleeding or discharge. Mucous membranes pink and moist. NECK: No midline cervical ttp. Mild erythema posterior neck. CARDIOVASCULAR: Regular rate and rhythm. No murmur appreciated. RESPIRATORY: No accessory muscle use. Clear to auscultation. Breath sounds equal bilaterally. GASTROINTESTINAL: Abdomen soft, non-tender, nondistended. MUSCULOSKELETAL: Left hand: +V shape avulsion dorsum of 4th MCP. FROM in all digits. Radial pulse 2+. Sensation intact. Right knee: Mild ecchymoses and edema. Pt said she always have edema but looks a little more than normal. Dp 2+. NEUROLOGICAL: Awake and alert. No obvious cranial nerve deficits. Motor grossly within normal limits. Normal speech. PSYCHIATRIC: Appropriate mood and affect; insight and judgment normal. Data Data Last Documented VS Vital Signs Date Time Temp Pulse Resp B/P (MAP) Pulse Ox O2 Delivery O2 Flow Rate FiO2 05/07/17 17:59 75 18 181/82 (115) 97 Room Air 05/07/17 16:[address] Brain W/O Iv Contrast(Rout) (05/07/17 ) Ct Facial Bones W/O Iv Cont (05/07/17 ) Ct Cerv Spine W/O Contrast (05/07/17 ) Knee, Ltd (1 Or 2vws) (05/07/17 ) Hand, Limited (2vws) (05/07/17 ) Tetanus/Diphtheria Tox Adult (Tetanus/Di (05/07/17 16:45) Acetaminophen (Tylenol) (05/07/17 16:45) Ketorolac Inj (Toradol Inj) (05/07/17 18:00) MDM Medical Decision Making Medical Screen Exam Complete: Yes Emergency Medical Condition: Yes Differential Diagnosis Fracture vs. contusion vs. ICH Narrative Course 81yo F here with c/o headache s/p mechanical fall. CT cspine showed degenerative change as described above without fracture. Xray left hand showed severe degenerative changes. CT brain negative. Xray right knee showed no fracture or effusion. CT facial negative. Pt given acetaminophen but still with headache so gave toradol. Hand avulsion repair with steri strips. Pt reevaluated after toradol and said headache resolved. Also ambulating in the ED without assistance and wants to go home. Tetanus updated. Procedures Procedure Narrative LACERATION LOCATION: 4th metacarpal LENGTH: 1cm NUMBER OF STITCHES/SEDRICK: Steri strip. REPAIR: The wound was copiously irrigated and explored without evidence of foreign body, tendon injury or neurovascular injury. The wound was closed using steri strip. This was a single layer repair. The patient was advised to keep the dressing clean and dry. Patient tolerated the procedure well. Diagnosis Primary Impression: Fall Qualified Codes: W19.XXXA - Unspecified fall, initial encounter Patient Instructions: General Instructions Departure Forms: Tests/Procedures Additional Instructions: Please follow up with your primary care physician in 2-3 days. Return to the ED if symptoms. Med/Other Pt SpecificInfo: Prescription(s) given Scripts Acetaminophen (Tylenol) 325 Mg Tab 650 MG PO Q6H Y for PAIN SCALE 1 TO 4, #20 TAB 0 Refills Prov: Minal Noe 05/07/17 Disposition: 01 DISCHARGE HOME Condition: Stable Minal Noe May 07, 2017 16:49
--- NOTE | 2017-05-07 17:16 | RADRPT ---
EXAM DATE/TIME: 05/07/2017 16:49 [facility] COMPARISON: No previous studies available for comparison. INDICATIONS : Tripped and fell coming [place] of the movie [place]ather 2 hours ago. MEDICAL HISTORY : Cardiovascular disease. Gastroesophageal reflux disease. Hypertension. SURGICAL HISTORY : Right knee replacement 2-3 years ago. ENCOUNTER: Initial ACUITY: 1 day PAIN SCORE: 0/10 LOCATION: Right upper extremity FINDINGS: Two view examination of the left hand demonstrates severe degenerative osteoarthritic changes at the first CMC joint. Osseous structures are otherwise intact with no acute fracture.. CONCLUSION: 1. 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 2. Otherwise negative. No acute osseous injury. Fabian Zavala MD on May 07, 2017 at 17:12 Board Certified Radiologist. This report was verified electronically.
--- NOTE | 2017-05-07 17:20 | RADRPT ---
EXAM DATE/TIME: 05/07/2017 16:54 [facility] COMPARISON: KNEE RIGHT LTD (1 OR 2 VWS), July 25, 2015, 15:25. INDICATIONS : Tripped and fell 2 hours ago coming [place] movie theater. MEDICAL HISTORY : Cardiovascular disease. Gastroesophageal reflux disease. Hypertension. SURGICAL HISTORY : Right knee replacement 2-3 years ago. ENCOUNTER: Initial ACUITY: 1 day PAIN SCORE: 0/10 LOCATION: Right Knee FINDINGS: Two view examination of the right knee demonstrates a total knee arthroplasty. The components are fabiola ropriately positioned no fracture. No significant effusion.. CONCLUSION: 1. Total knee arthroplasty. 2. No fracture or effusion. Fabian Zavala MD on May 07, 2017 at 17:16 Board Certified Radiologist. This report was verified electronically.
--- NOTE | 2017-05-07 17:24 | RADRPT ---
EXAM DATE/TIME: 05/07/2017 17:09 [facility] COMPARISON: CT BRAIN W/O CONTRAST, April 15, 2009, 11:04. INDICATIONS : TRauma, patient fell hit head. RADIATION DOSE: 56.35 CTDIvol (mGy) MEDICAL HISTORY : Cardiovascular disease. Cerebrovascular disease. Hypertension. SURGICAL HISTORY : Appendectomy. Cholecystectomy.Hysterectomy. ENCOUNTER: Initial ACUITY: 1 day PAIN SCALE: 7/10 LOCATION: cranial TECHNIQUE: Multiple contiguous axial images were obtained of the head. Using automated exposure control and adjustment of the mA and/or kV according to patient size, radiation dose was kept as low as reasonably achievable to obtain optimal diagnostic quality images. DICOM format image data is av ailable electronically for review and comparison. FINDINGS: CEREBRUM: The ventricles are normal for age. No evidence of midline shift, mass lesion, hemorrha ge or acute infarction. No extra-axial fluid collections are seen. POSTERIOR FOSSA: The cerebellum and brainstem are intact. The 4th ventricle is midline. The cer ebellopontine angle is unremarkable. EXTRACRANIAL: The visualized portion of the orbits is intact. SKULL: The calvaria is intact. No evidence of skull fracture. CONCLUSION: Negative for acute process Kavon Rajan MD FACR on May 07, 2017 at 17:22 Board Certified Radiologist. This report was verified electronically.
--- NOTE | 2017-05-07 17:30 | RADRPT ---
EXAM DATE/TIME: 05/07/2017 17:11 [facility] COMPARISON: No previous studies available for comparison. INDICATIONS : Trauma, patient fell, neck pain. RADIATION DOSE: 23.14 CTDIvol (mGy) MEDICAL HISTORY : Cerebrovascular disease. Cardiovascular disease Hypertension. SURGICAL HISTORY : Appendectomy. Cholecystectomy.Hysterectomy. ENCOUNTER: Initial ACUITY: 1 day PAIN SCALE: 5/10 LOCATION: neck TECHNIQUE: Volumetric scanning of the cervical spine was performed. Multiplanar reconstructions in the sagittal, coronal and oblique axial planes were performed. Using automated exposure control and adjustment o f the mA and/or kV according to patient size, radiation dose was kept as low as reasonably achievable to obtain optimal diagnostic quality images. DICOM format image data is available electronically f or review and comparison. FINDINGS: VERTEBRAE: Normal vertebral body height. ALIGNMENT: No evidence of subluxation. C2-C3: Mild degenerative changes are seen at C2-C3. Mild degenerative changes are seen at C1-C2 as well. C3-C4: The bony spinal canal is normal in size. No evidence of disc bulge or herniation. The neural forami na are bilaterally patent. 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 C5-C6: Moderate imaging present bilateral from occlusion. Her from clinically significant. Spinal stenosis is mild. C6-C7: Minimal left-sided neural foraminal encroachment. No significant spinal stenosis. C7-T1: The bony spinal canal is normal in size. No evidence of disc bulge or herniation. The neural forami na are bilaterally patent. CONCLUSION: 1. Degenerative changes as described above without fracture Kavon Rajan MD FACR on May 07, 2017 at 17:26 Board Certified Radiologist. This report was verified electronically.
--- NOTE | 2017-05-07 17:31 | RADRPT ---
EXAM DATE/TIME: 05/07/2017 17:12 [facility] COMPARISON: No previous studies available for comparison. INDICATIONS : Trauma, patient fell, hit head. RADIATION DOSE: 26.35 CTDIvol (mGy) MEDICAL HISTORY : Cerebrovascular disease. Cardiovascular disease Hypertension. SURGICAL HISTORY : Appendectomy. Cholecystectomy.Hysterectomy. ENCOUNTER: Initial ACUITY: 1 day PAIN SCORE: 5/10 LOCATION: facial TECHNIQUE: Volumetric scanning of the facial bones was performed. Using automated exposure control and adjustme nt of the mA and/or kV according to patient size, radiation dose was kept as low as reasonably achiev able to obtain optimal diagnostic quality images. DICOM format image data is available electronicall y for review and comparison. FINDINGS: ORBITS: The orbital and infraorbital osseous structures are intact. The retroconal structures have a normal configuration. No radiopaque foreign bodies are seen. NASAL BONE: The nasal bone and maxillary spine are intact ZYGOMATIC ARCHES: Symmetric without evidence of fracture. SINUSES: The maxillary, ethmoid and frontal sinuses are intact. No air-fluid levels seen. NASAL CAVITY: The nasal septum is intact and midline. The lacrimal ducts are intact. SOFT TISSUES: No radiopaque foreign bodies seen. No soft-tissue swelling is seen. INTRACRANIAL: No intracranial air seen. CRIBIFORM PLATE: Grossly intact. CONCLUSION: Negative for fracture or significant sinus disease. Kavon Rajan MD FACR on May 07, 2017 at 17:28 Board Certified Radiologist. This report was verified electronically.
[2017-05-07 17:59] VITALS: BP 181/82; PULSE 75; RESP 18; O2SAT 97
[2017-05-07] MEDS ORDERED: KETOROLAC TROMETHAMINE 60 MG/2 ML (IM) VIAL IM ONE (18:00)
[2017-05-07] MEDS ORDERED: TYLE325T PO (18:55)
== END 2017-05-07 19:16 | disposition home or self-care (01) ==
LOC: NEPE 16:08
DX: S61.215A Laceration without foreign body of left ring finger without damage to nail, initial encounter (principal); S80.01XA Contusion of right knee, initial encounter; R51 Headache; M50.31 Other cervical disc degeneration, high cervical region; I10 Essential (primary) hypertension; K21.9 Gastro-esophageal reflux disease without esophagitis; W19.XXXA Unspecified fall, initial encounter; Y92.26 Movie house or cinema as the place of occurrence of the external cause; Z23 Encounter for immunization
CPT/HCPCS: 70450; 70486; 72125; 73120; 73560; 90471; 90714; 96372; 99285; J1885